=== PATIENT | female | born 1955 | race Caucasian/White ===

== ENCOUNTER 2023-03-04 09:19 | Emergency (ER) | payer OTHER ==
[~2023-03-04] VITALS: Ht 152.4 cm; Wt 73.9 kg
[~2023-03-04 09:19] MED LIST: [UNRECOGNIZED DRUG - REMARK]; [UNRECOGNIZED DRUG - REMARK]; [UNRECOGNIZED DRUG - REMARK]
[2023-03-04 09:22] VITALS: BP 112/64
--- NOTE | 2023-03-04 09:30 | NUR ---
PT AMBULATORY TO BED 02
--- NOTE | 2023-03-04 10:45 | NUR ---
Female Production Clerk accompanied female patient for VAGINAL Exam.
[2023-03-04 11:27] LABS: APPEARANCE,URINE CLEAR (CLEAR); BILIRUBIN,URINE NEGATIVE (NEGATIVE); BLOOD, URINE NEGATIVE (NEGATIVE); COLOR,URINE YELLOW (YELLOW); LEUKOCYTE ESTERASE ,URINE NEGATIVE (NEGATIVE); NITRITE, URINE NEGATIVE (NEGATIVE); UGLUCOSE 3+ (NEGATIVE)
[2023-03-04] MEDS ORDERED: PROM473S5 PO (12:01)
[2023-03-04] MEDS ORDERED: LOTC TP (12:01)
[2023-03-04 12:20] VITALS: BP 110/63
--- NOTE | 2023-03-04 12:20 | NUR ---
Patient discharged with v/s stable. Written and verbal after care instructions given and explained. Patient alert, oriented and verbalized understanding of instructions. Ambulatory with steady gait. All questions addressed prior to discharge. ID band removed. Patient advised to follow up with PMD. Rx of LOTRIMIN AND PRMETHAZINE-DM given. Patient educated on indication of medication including possible reaction and side effects. Opportunity to ask questions provided and answered.
== END 2023-03-04 12:20 | disposition home or self-care (01) ==
LOC: MED 09:19
DX: J40 Bronchitis, not specified as acute or chronic (principal); N76.0 Acute vaginitis; E11.9 Type 2 diabetes mellitus without complications; I10 Essential (primary) hypertension; E78.5 Hyperlipidemia, unspecified; Z79.899 Other long term (current) drug therapy
CPT/HCPCS: 71045; 81003; 99284; Q0092